=== PATIENT | female | born 1970 | race Two or more races ===

== ENCOUNTER → 2018-07-09 | Outpatient (CLI) | payer OTHER | END | disposition home or self-care (01) | LOC: MAMO-SONO 14:45 | DX: N64.4 Mastodynia (principal); Z12.31 Encounter for screening mammogram for malignant neoplasm of breast; D25.9 Leiomyoma of uterus, unspecified ==

== ENCOUNTER 2018-07-17 11:07 | Outpatient (CLI) | payer OTHER | END 2018-07-17 11:13 | disposition home or self-care (01) | LOC: SONOGRAMA 11:07 → MAMO-SONO 15:15 | DX: N64.4 Mastodynia (principal); Z12.31 Encounter for screening mammogram for malignant neoplasm of breast ==

== ENCOUNTER 2019-12-22 10:49 | Outpatient (CLI) | payer OTHER | END 2019-12-22 11:13 | disposition home or self-care (01) | LOC: MAMO-SONO 10:49 | PROVIDERS: ATTEND Obstetrics & Gynecology | DX: Z12.31 Encounter for screening mammogram for malignant neoplasm of breast (principal); N64.4 Mastodynia ==